=== PATIENT | male | born 1940 | race Caucasian/White ===

== ENCOUNTER → 2016-09-25 | Day surgery (SDC) | payer MEDICARE, OTHER ==
[~2016-09-25] MED LIST: ASPI81TA2 PO; CRESTOR10 MG PO; HYDROmorphone 2 MG/ML VIAL IV PRN; IV RINGERS,LACTATED 1000ML 1,000 ML IV SCH; LIDOCAINE 1% 1 ML SYRINGE. ID PRN; LOSA25TA PO; MELO7.5T5 PO; MORPHINE SULFATE 2 MG/ML DISP.SYRIN. IV PRN; ONDANSETRON PF 4 MG/2 ML VIAL. IV PRN; PROCHLORPERAZINE 10 MG/2 ML VIAL. IV PRN; PROPOFOL 40 ML IV ONE; fentaNYL PF VIAL 100 MCG/2 ML VIAL IV PRN
[2016-09-25 08:00] VITALS: BP 98/62
--- NOTE | 2016-09-26 13:53 | PATHOLOGY ---
PATHOLOGY REPORT * * * * * * * * FINAL DIAGNOSIS: A. Colon rectum, biopsy: - Hyperplastic polyps, two fragments. B. Colon, transverse, biopsy: - Hyperplastic polyps, two fragments. (CHAR:; d/t: 09/26/16) REPORT ELECTRONICALLY SIGNED BY: Oliva Trinh M.D. DATE/TIME: 09/26/2016 13:53 * * * * * * * * GROSS PATHOLOGY: A. Received in formalin labeled "Kirstin Brown, rectal polyp," are two segments of walters soft tissue measuring 0.6 x 0.5 x 0.1 cm in aggregate dimensions and measuring 0.5 cm each in maximum dimension. The specimen is submitted entirely in cassette A1. B. Received in formalin labeled "Kirstin Brown, transverse colon polyp," is a segment of walters soft tissue measuring 0.8 cm in maximum dimension. The specimen is submitted entirely in cassette B1. (CAA; 09/25/2016) INITIAL CPT CODE(S): A; 34656 B; 97297 Professional services [place] [address] Technical services performed by [facility] at [address] [place] [address]. SPECIMEN(S) RECEIVED: A.Rectal polyp B.Transverse colon polyp CLINICAL HISTORY: Screening PATIENT: KIRSTIN DUNCAN /AGE: 712/26/1940 (Age: 75) PATIENT #: [id number] ALT CASE #: SPECIMEN COLLECTION DATE: 09/25/2016 SPECIMEN RECEIVED DATE: 09/25/2016 [facility] - [address] [place] [address] - PHONE: [phone] * * * END OF REPORT * * *
== END | disposition home or self-care (01) ==
LOC: ENDOS 06:24
PROVIDERS: ATTEND Internal Medicine Gastroenterology
DX: K64.0 First degree hemorrhoids (principal); K62.1 Rectal polyp; D12.3 Benign neoplasm of transverse colon; K57.30 Diverticulosis of large intestine without perforation or abscess without bleeding; Z80.0 Family history of malignant neoplasm of digestive organs; E78.00 Pure hypercholesterolemia, unspecified; I10 Essential (primary) hypertension; M19.90 Unspecified osteoarthritis, unspecified site
CPT/HCPCS: 45380; 88305; 99156; J2704